=== PATIENT | female | born 1985 | race Asian ===

== ENCOUNTER 2021-04-23 16:28 | Emergency (ER) | payer BC ==
[~2021-04-23] VITALS: Ht 165.1 cm; Wt 73.0 kg
[2021-04-23 16:39] VITALS: BP 150/77
[2021-04-23] MEDS ORDERED: P50 MT (18:54)
[2021-04-23] MEDS ORDERED: HYDR453.3 TP (18:54)
[2021-04-23] MEDS ORDERED: PREDNISONE 20MG TABLET PO ONE (19:00)
== END 2021-04-23 19:11 | disposition home or self-care (01) ==
LOC: ER 16:28
DX: M79.89 Other specified soft tissue disorders (principal); M06.9 Rheumatoid arthritis, unspecified; M35.9 Systemic involvement of connective tissue, unspecified
CPT/HCPCS: 99283; J7512